=== PATIENT | male | born 1950 | race Caucasian/White ===

== ENCOUNTER 2020-01-13 14:02 | Inpatient (IN) | payer MEDICARE, MEDICAID ==
[~2020-01-13] VITALS: Ht 172.7 cm; Wt 108.0 kg
[2020-01-13] MEDS ORDERED: FAMOTIDINE 20MG/2ML VIAL IV STA (15:29)
[2020-01-13] MEDS ORDERED: SODIUM CHLORIDE 0.9% 1,000 ML IV ONE (15:29)
[2020-01-13] MEDS ORDERED: MORPHINE SULFATE 4 MG/ML CPJ (NOT FOR IM USE) IV STA (15:29)
[2020-01-13 15:39] LABS: CLARITY URINE CLEAR (CLEAR); COLOR URINE YELLOW (YELLOW); KETONES URINE 1+ (NEGATIVE); LEUKOCYTE ESTERASE URINE NEGATIVE (NEGATIVE); NITRITE URINE NEGATIVE (NEGATIVE); OCCULT BLOOD URINE 2+ (NEGATIVE); PH URINE 5.5 (4.5-8.0); PROTEIN URINE 2+ (NEGATIVE); SPECIFIC GRAVITY URINE 1.035 (1.005-1.030); UROBILINOGEN URINE 0.2 E.U./dL (0.2-1.0)
[2020-01-13 16:05] LABS: HEMATOCRIT. 44.2 % (42.0-52.0); HEMOGLOBIN. 14.8 g/dL (14.0-18.0); MEAN CORPUSCULAR HEMOGLOBIN 28.3 pg (28.0-32.0); MEAN CORPUSCULAR VOLUME 84.3 fL (80.0-94.0); MEAN PLATELET VOLUME 7.2 fl (7.4-10.4); PLATELET 464 x1000/uL (130-400); RED BLOOD CELL COUNT 5.24 mill/uL (4.7-6.1); RED CELL DISTRIBUTION WIDTH 18.1 % (11.6-14.6)
[2020-01-13 16:08] LABS: CHLORIDE 103 mEq/L (98-107)
[2020-01-13 16:11] LABS: PROTHROMBIN TIME 10.3 sec (9.6-11.0)
[2020-01-13 17:01] LABS: PLATELET ESTIMATE INCREASED
[2020-01-13] MEDS ORDERED: LEVOFLOXACIN 750MG PREMIX 150 ML IV ONE (17:15)
[2020-01-13] MEDS: MORPHINE SULFATE 2 MG/ML CPJ (NOT FOR IM USE) IV PRN (19:03)
[2020-01-13 21:00] VITALS: BP 186/96
[2020-01-13] MEDS ORDERED: SODIUM CHLORIDE 0.9% 1,000 ML IV NR (21:00)
[2020-01-13] MEDS ORDERED: PIPERACILLIN/TAZOBACTAM 3.375 G in DEXT 5% WATER 100 ML IV SCH (21:00)
[2020-01-13] MEDS ORDERED: DOCUSATE SODIUM 100MG CAPSULE PO PRN (21:00)
[2020-01-13] MEDS ORDERED: ONDANSETRON HCL 4MG/2ML INJ IV PRN (21:00)
[2020-01-13] MEDS ORDERED: GUAIFENESIN 200MG/10ML SUGAR FREE UDC PO PRN (21:00)
[2020-01-13] MEDS ORDERED: DEXTROSE 50% WATER 50ML SYRINGE IV PRN (23:00)
[2020-01-13] MEDS ORDERED: FOLIC ACID 1 MG, THIAMINE HCL 100 MG, MVI, ADULT NO.1 10 ML in DEXTROSE 5% WATER 1,000 ML IV ONE ×4 (23:30)
[2020-01-13] MEDS: SODIUM CHLORIDE 0.9% 1,000 ML IV SCH (23:44)
[2020-01-13] MEDS: LORAZEPAM 0.5MG TABLET PO PRN (23:44)
[2020-01-13] MEDS: CLONIDINE 0.1MG TABLET PO PRN (23:44)
[2020-01-13] MEDS: HYDROCODONE/ACETAMINOPHEN 5/325MG TABLET PO PRN (23:46)
[2020-01-14] VITALS: BP 155/83
[2020-01-14] MEDS: MULTIVITAMINS,THER W-MINERALS TABLET PO SCH ×2 (02:09→08:19)
[2020-01-14] MEDS: FOLIC ACID 1MG TABLET PO SCH ×2 (02:10→08:19)
[2020-01-14] MEDS: THIAMINE HCL 100MG TABLET PO SCH ×2 (02:10→08:20)
[2020-01-14 04:00] VITALS: BP 149/86
[2020-01-14] MEDS: LORAZEPAM 0.5MG TABLET PO PRN ×2 (06:53→15:18)
[2020-01-14] MEDS: BLOOD SUGAR DIAGNOSTIC STRIP TEST SCH ×4 (06:53→21:53)
[2020-01-14] MEDS: PIPERACILLIN/TAZOBACTAM 3.375 G in DEXT 5% WATER 100 ML IV SCH ×3 (06:53→16:13)
[2020-01-14] MEDS: CHLORDIAZEPOXIDE 25MG CAPSULE PO SCH ×3 (06:53→21:52)
[2020-01-14 07:34] LABS: BASOPHILS % 0.2 % (0.0-2.0); HEMOGLOBIN. 13.9 g/dL (14.0-18.0); LYMPHOCYTES % 10.2 % (20.0-50.0); MEAN CORPUSCULAR HEMOGLOBIN 28.9 pg (28.0-32.0); MEAN PLATELET VOLUME 7.2 fl (7.4-10.4); MONOCYTES % 12.4 % (2.0-8.0); NEUTROPHILS % 77.2 % (40.0-76.0); PLATELET 373 x1000/uL (130-400); RED BLOOD CELL COUNT 4.82 mill/uL (4.7-6.1); RED CELL DISTRIBUTION WIDTH 18.2 % (11.6-14.6)
[2020-01-14 07:35] LABS: CHLORIDE 98 mEq/L (98-107)
[2020-01-14 08:00] VITALS: BP 145/79
[2020-01-14] MEDS: SODIUM CHLORIDE 0.9% 1,000 ML IV SCH ×2 (08:19→16:14)
[2020-01-14] MEDS: INSULIN LISPRO 100 UNITS/ML SUBCUT SCH ×4 (08:35→21:53)
[2020-01-14] MEDS: HEPARIN 5000 UNITS/ML VIAL SUBCUT SCH ×2 (08:36→21:52)
[2020-01-14] MEDS ORDERED: ENOXAPARIN 40MG/0.4ML SYR SUBCUT SCH (09:00)
[2020-01-14] MEDS: HYDROCODONE/ACETAMINOPHEN 5/325MG TABLET PO PRN ×2 (12:10→21:20)
[2020-01-14 12:30] VITALS: BP 143/71
[2020-01-14] MEDS: PANTOPRAZOLE SODIUM 40 MG/VIAL IV SCH (13:15)
[2020-01-14] MEDS: ACETAMINOPHEN 325MG TABLET PO PRN (15:18)
[2020-01-14 16:00] VITALS: BP 149/66
[2020-01-14 20:00] VITALS: BP 120/88
[2020-01-15] VITALS: BP 162/90
[2020-01-15] MEDS: LORAZEPAM 0.5MG TABLET PO PRN ×3 (00:51→20:37)
[2020-01-15] MEDS: CLONIDINE 0.1MG TABLET PO PRN ×2 (00:52→20:39)
[2020-01-15] MEDS: PIPERACILLIN/TAZOBACTAM 3.375 G in DEXT 5% WATER 100 ML IV SCH ×5 (00:52→23:32)
[2020-01-15 04:00] VITALS: BP 115/77
[2020-01-15] MEDS: SODIUM CHLORIDE 0.9% 1,000 ML IV SCH ×2 (05:30→15:49)
[2020-01-15] MEDS: CHLORDIAZEPOXIDE 25MG CAPSULE PO SCH ×3 (05:31→20:38)
[2020-01-15] MEDS: BLOOD SUGAR DIAGNOSTIC STRIP TEST SCH ×4 (05:47→20:52)
[2020-01-15 08:00] VITALS: BP 125/77
[2020-01-15] MEDS: MULTIVITAMINS,THER W-MINERALS TABLET PO SCH (08:36)
[2020-01-15] MEDS: THIAMINE HCL 100MG TABLET PO SCH (08:36)
[2020-01-15] MEDS: PANTOPRAZOLE SODIUM 40 MG/VIAL IV SCH (08:36)
[2020-01-15] MEDS: FOLIC ACID 1MG TABLET PO SCH (08:36)
[2020-01-15] MEDS: HEPARIN 5000 UNITS/ML VIAL SUBCUT SCH ×2 (08:37→20:41)
[2020-01-15] MEDS: INSULIN LISPRO 100 UNITS/ML SUBCUT SCH ×4 (08:39→20:52)
[2020-01-15] MEDS: MORPHINE SULFATE 2 MG/ML CPJ (NOT FOR IM USE) IV PRN (10:25)
[2020-01-15 11:23] LABS: BASOPHILS % 1.1 % (0.0-2.0); EOSINOPHILS % 0.7 % (0.0-5.0); HEMATOCRIT. 45.8 % (42.0-52.0); HEMOGLOBIN. 15.2 g/dL (14.0-18.0); LYMPHOCYTES % 21.1 % (20.0-50.0); MEAN CORPUSCULAR HEMOGLOBIN 28.4 pg (28.0-32.0); MEAN PLATELET VOLUME 7.3 fl (7.4-10.4); NEUTROPHILS % 63.1 % (40.0-76.0); PLATELET 396 x1000/uL (130-400); RED BLOOD CELL COUNT 5.33 mill/uL (4.7-6.1); RED CELL DISTRIBUTION WIDTH 17.9 % (11.6-14.6)
[2020-01-15 11:30] LABS: CHLORIDE 102 mEq/L (98-107)
[2020-01-15 12:00] VITALS: BP 130/79
[2020-01-15 16:00] VITALS: BP 147/83
[2020-01-15 20:00] VITALS: BP 167/91
[2020-01-15] MEDS: HYDROCODONE/ACETAMINOPHEN 5/325MG TABLET PO PRN (20:38)
[2020-01-15] MEDS: ACETAMINOPHEN 325MG TABLET PO PRN (20:39)
[2020-01-15] MEDS: ENOXAPARIN 120MG/0.8ML SYR SUBCUT SCH (23:31)
[2020-01-16] VITALS: BP 162/85
[2020-01-16] MEDS: SODIUM CHLORIDE 0.9% 1,000 ML IV SCH ×3 (01:13→20:40)
[2020-01-16 04:00] VITALS: BP 140/83
[2020-01-16] MEDS: CHLORDIAZEPOXIDE 25MG CAPSULE PO SCH ×3 (05:50→20:42)
[2020-01-16] MEDS: PIPERACILLIN/TAZOBACTAM 3.375 G in DEXT 5% WATER 100 ML IV SCH ×3 (05:50→18:02)
[2020-01-16] MEDS: BLOOD SUGAR DIAGNOSTIC STRIP TEST SCH ×4 (07:40→21:00)
[2020-01-16 08:00] VITALS: BP 138/79
[2020-01-16] MEDS: PANTOPRAZOLE SODIUM 40 MG/VIAL IV SCH (09:06)
[2020-01-16] MEDS: MULTIVITAMINS,THER W-MINERALS TABLET PO SCH (09:06)
[2020-01-16] MEDS: FOLIC ACID 1MG TABLET PO SCH (09:07)
[2020-01-16] MEDS: THIAMINE HCL 100MG TABLET PO SCH (09:07)
[2020-01-16] MEDS: INSULIN LISPRO 100 UNITS/ML SUBCUT SCH ×4 (09:08→21:00)
[2020-01-16 10:24] LABS: CHLORIDE 102 mEq/L (98-107)
[2020-01-16 10:30] LABS: BASOPHILS % 1.1 % (0.0-2.0); EOSINOPHILS % 3.2 % (0.0-5.0); HEMATOCRIT. 42.1 % (42.0-52.0); HEMOGLOBIN. 14.2 g/dL (14.0-18.0); LYMPHOCYTES % 21.6 % (20.0-50.0); MEAN CORPUSCULAR HEMOGLOBIN 28.9 pg (28.0-32.0); MEAN CORPUSCULAR VOLUME 85.7 fL (80.0-94.0); MEAN PLATELET VOLUME 7.7 fl (7.4-10.4); MONOCYTES % 10.2 % (2.0-8.0); NEUTROPHILS % 63.9 % (40.0-76.0); PLATELET 361 x1000/uL (130-400); RED BLOOD CELL COUNT 4.91 mill/uL (4.7-6.1); RED CELL DISTRIBUTION WIDTH 18.4 % (11.6-14.6)
[2020-01-16] MEDS: ENOXAPARIN 120MG/0.8ML SYR SUBCUT SCH ×2 (11:00→20:41)
[2020-01-16 12:00] VITALS: BP 136/61
[2020-01-16 13:38] LABS: HEPATITIS B SURFACE ANTIGEN NEGATIVE
[2020-01-16 14:07] LABS: HEPATITIS A AB IGM NEGATIVE (NEGATIVE)
[2020-01-16 16:00] VITALS: BP 146/55
[2020-01-16] MEDS: LORAZEPAM 0.5MG TABLET PO PRN ×2 (16:40→20:41)
[2020-01-16 20:00] VITALS: BP 160/80
[2020-01-16] MEDS: HYDROCODONE/ACETAMINOPHEN 5/325MG TABLET PO PRN (20:42)
[2020-01-17] VITALS: BP 137/84
[2020-01-17] MEDS: PIPERACILLIN/TAZOBACTAM 3.375 G in DEXT 5% WATER 100 ML IV SCH ×5 (00:52→21:46)
[2020-01-17 04:00] VITALS: BP 138/83
[2020-01-17] MEDS: CHLORDIAZEPOXIDE 25MG CAPSULE PO SCH ×3 (06:27→21:44)
[2020-01-17] MEDS: SODIUM CHLORIDE 0.9% 1,000 ML IV SCH ×2 (06:28→17:00)
[2020-01-17] MEDS: BLOOD SUGAR DIAGNOSTIC STRIP TEST SCH ×4 (06:34→21:46)
[2020-01-17 06:42] LABS: BASOPHILS % 0.9 % (0.0-2.0); EOSINOPHILS % 3.6 % (0.0-5.0); HEMATOCRIT. 44.9 % (42.0-52.0); HEMOGLOBIN. 14.9 g/dL (14.0-18.0); MEAN CORPUSCULAR VOLUME 87.4 fL (80.0-94.0); MEAN PLATELET VOLUME 7.9 fl (7.4-10.4); MONOCYTES % 9.2 % (2.0-8.0); NEUTROPHILS % 67.3 % (40.0-76.0); PLATELET 336 x1000/uL (130-400); RED BLOOD CELL COUNT 5.14 mill/uL (4.7-6.1); RED CELL DISTRIBUTION WIDTH 18.5 % (11.6-14.6)
[2020-01-17 07:59] LABS: CHLORIDE 105 mEq/L (98-107)
[2020-01-17 08:00] VITALS: BP 148/78
[2020-01-17] MEDS ORDERED: IOHEXOL-350 100 ML BOTTLE ONE (08:11)
[2020-01-17] MEDS: PANTOPRAZOLE SODIUM 40 MG/VIAL IV SCH (08:48)
[2020-01-17] MEDS: FOLIC ACID 1MG TABLET PO SCH (08:48)
[2020-01-17] MEDS: MULTIVITAMINS,THER W-MINERALS TABLET PO SCH (08:48)
[2020-01-17] MEDS: INSULIN LISPRO 100 UNITS/ML SUBCUT SCH ×4 (08:50→21:47)
[2020-01-17] MEDS: THIAMINE HCL 100MG TABLET PO SCH (10:38)
[2020-01-17] MEDS: ENOXAPARIN 120MG/0.8ML SYR SUBCUT SCH ×2 (10:39→21:46)
[2020-01-17] MEDS: MORPHINE SULFATE 2 MG/ML CPJ (NOT FOR IM USE) IV PRN (11:07)
[2020-01-17 12:00] VITALS: BP 138/79
[2020-01-17 16:00] VITALS: BP 148/79
[2020-01-17] MEDS: LORAZEPAM 0.5MG TABLET PO PRN ×2 (16:07→21:44)
[2020-01-17 20:00] VITALS: BP 131/81
[2020-01-17] MEDS: HYDROCODONE/ACETAMINOPHEN 5/325MG TABLET PO PRN (21:45)
[2020-01-18] VITALS: BP 126/73
[2020-01-18] MEDS: SODIUM CHLORIDE 0.9% 1,000 ML IV SCH (03:00)
[2020-01-18 04:00] VITALS: BP 151/83
[2020-01-18 05:47] LABS: BASOPHILS % 0.6 % (0.0-2.0); EOSINOPHILS % 3.8 % (0.0-5.0); HEMATOCRIT. 40.5 % (42.0-52.0); HEMOGLOBIN. 13.5 g/dL (14.0-18.0); MEAN CORPUSCULAR HEMOGLOBIN 28.5 pg (28.0-32.0); MEAN CORPUSCULAR VOLUME 85.7 fL (80.0-94.0); MEAN PLATELET VOLUME 7.5 fl (7.4-10.4); MONOCYTES % 9.7 % (2.0-8.0); NEUTROPHILS % 69.9 % (40.0-76.0); PLATELET 365 x1000/uL (130-400); RED BLOOD CELL COUNT 4.72 mill/uL (4.7-6.1); RED CELL DISTRIBUTION WIDTH 18.3 % (11.6-14.6)
[2020-01-18] MEDS: PIPERACILLIN/TAZOBACTAM 3.375 G in DEXT 5% WATER 100 ML IV SCH ×3 (06:14→17:42)
[2020-01-18] MEDS: CHLORDIAZEPOXIDE 25MG CAPSULE PO SCH ×3 (06:14→22:37)
[2020-01-18 07:20] LABS: CHLORIDE 103 mEq/L (98-107)
[2020-01-18] MEDS: BLOOD SUGAR DIAGNOSTIC STRIP TEST SCH ×4 (07:40→20:21)
[2020-01-18 08:14] VITALS: BP 133/66
[2020-01-18] MEDS: PANTOPRAZOLE SODIUM 40 MG/VIAL IV SCH (08:44)
[2020-01-18] MEDS: THIAMINE HCL 100MG TABLET PO SCH (08:44)
[2020-01-18] MEDS: MULTIVITAMINS,THER W-MINERALS TABLET PO SCH (08:44)
[2020-01-18] MEDS: FOLIC ACID 1MG TABLET PO SCH (08:44)
[2020-01-18] MEDS: INSULIN LISPRO 100 UNITS/ML SUBCUT SCH ×4 (08:45→20:46)
[2020-01-18] MEDS: ENOXAPARIN 120MG/0.8ML SYR SUBCUT SCH ×2 (10:06→22:38)
[2020-01-18 12:00] VITALS: BP 111/72
[2020-01-18 16:00] VITALS: BP_SYST 125; BP_DIAS 70; BP_DIAS 78
[2020-01-18 20:00] VITALS: BP 146/84
[2020-01-18] MEDS: ACETAMINOPHEN 325MG TABLET PO PRN (22:40)
[2020-01-19] VITALS: BP 159/84
[2020-01-19] MEDS: PIPERACILLIN/TAZOBACTAM 3.375 G in DEXT 5% WATER 100 ML IV SCH ×4 (00:36→17:29)
[2020-01-19 04:00] VITALS: BP 145/89
[2020-01-19] MEDS: CHLORDIAZEPOXIDE 25MG CAPSULE PO SCH (05:50)
[2020-01-19 06:12] LABS: CHLORIDE 103 mEq/L (98-107)
[2020-01-19 06:20] LABS: HEMATOCRIT. 41.7 % (42.0-52.0); MEAN CORPUSCULAR HEMOGLOBIN 28.9 pg (28.0-32.0); MEAN CORPUSCULAR VOLUME 86.3 fL (80.0-94.0); MEAN PLATELET VOLUME 7.7 fl (7.4-10.4); PLATELET 327 x1000/uL (130-400); RED BLOOD CELL COUNT 4.84 mill/uL (4.7-6.1); RED CELL DISTRIBUTION WIDTH 18.6 % (11.6-14.6)
[2020-01-19] MEDS: BLOOD SUGAR DIAGNOSTIC STRIP TEST SCH ×4 (06:46→21:20)
[2020-01-19 08:00] VITALS: BP 114/75
[2020-01-19] MEDS: PANTOPRAZOLE SODIUM 40 MG/VIAL IV SCH (08:43)
[2020-01-19] MEDS: MULTIVITAMINS,THER W-MINERALS TABLET PO SCH ×2 (08:43→11:45)
[2020-01-19] MEDS: HYDROCODONE/ACETAMINOPHEN 5/325MG TABLET PO PRN ×2 (08:44→21:23)
[2020-01-19] MEDS: INSULIN LISPRO 100 UNITS/ML SUBCUT SCH ×4 (08:46→21:29)
[2020-01-19] MEDS: ENOXAPARIN 120MG/0.8ML SYR SUBCUT SCH (11:29)
[2020-01-19] MEDS: FOLIC ACID 1MG TABLET PO SCH (11:45)
[2020-01-19] MEDS: THIAMINE HCL 100MG TABLET PO SCH (11:45)
[2020-01-19 12:00] VITALS: BP 90/50
[2020-01-19 16:00] VITALS: BP 127/63
[2020-01-19 16:52] LABS: PLATELET ESTIMATE NORMAL
[2020-01-19 20:00] VITALS: BP 129/97
[2020-01-20] VITALS: BP 142/50
[2020-01-20] MEDS: ENOXAPARIN 120MG/0.8ML SYR SUBCUT SCH ×3 (00:07→23:00)
[2020-01-20 04:00] VITALS: BP 108/50
[2020-01-20 06:54] LABS: BASOPHILS % 0.9 % (0.0-2.0); EOSINOPHILS % 4.4 % (0.0-5.0); HEMATOCRIT. 42.9 % (42.0-52.0); HEMOGLOBIN. 14.4 g/dL (14.0-18.0); LYMPHOCYTES % 18.8 % (20.0-50.0); MEAN CORPUSCULAR HEMOGLOBIN 29.2 pg (28.0-32.0); MEAN CORPUSCULAR VOLUME 87.1 fL (80.0-94.0); MEAN PLATELET VOLUME 7.4 fl (7.4-10.4); MONOCYTES % 11.1 % (2.0-8.0); NEUTROPHILS % 64.8 % (40.0-76.0); PLATELET 321 x1000/uL (130-400); RED BLOOD CELL COUNT 4.93 mill/uL (4.7-6.1); RED CELL DISTRIBUTION WIDTH 18.7 % (11.6-14.6)
[2020-01-20] MEDS: BLOOD SUGAR DIAGNOSTIC STRIP TEST SCH ×4 (07:13→21:03)
[2020-01-20] MEDS: INSULIN LISPRO 100 UNITS/ML SUBCUT SCH ×4 (07:13→21:15)
[2020-01-20 07:24] LABS: CHLORIDE 104 mEq/L (98-107)
[2020-01-20 08:00] VITALS: BP 132/84
[2020-01-20] MEDS: THIAMINE HCL 100MG TABLET PO SCH (08:16)
[2020-01-20] MEDS: FOLIC ACID 1MG TABLET PO SCH (08:16)
[2020-01-20] MEDS: PANTOPRAZOLE SODIUM 40 MG/VIAL IV SCH (08:16)
[2020-01-20 12:00] VITALS: BP 140/78
[2020-01-20 16:00] VITALS: BP 130/80
[2020-01-20 20:00] VITALS: BP 123/81
[2020-01-20] MEDS: HYDROCODONE/ACETAMINOPHEN 5/325MG TABLET PO PRN (21:18)
[2020-01-21] VITALS: BP_SYST 117; BP_SYST 127; BP_DIAS 69; BP_DIAS 82
[2020-01-21 04:00] VITALS: BP 138/45
[2020-01-21] MEDS: BLOOD SUGAR DIAGNOSTIC STRIP TEST SCH ×4 (07:52→21:00)
[2020-01-21] MEDS: INSULIN LISPRO 100 UNITS/ML SUBCUT SCH ×4 (07:52→22:14)
[2020-01-21 08:00] VITALS: BP 131/63
[2020-01-21] MEDS: ENOXAPARIN 120MG/0.8ML SYR SUBCUT SCH ×2 (09:51→22:04)
[2020-01-21] MEDS: FOLIC ACID 1MG TABLET PO SCH (09:52)
[2020-01-21] MEDS: PANTOPRAZOLE SODIUM 40 MG/VIAL IV SCH (09:52)
[2020-01-21] MEDS: THIAMINE HCL 100MG TABLET PO SCH (09:52)
[2020-01-21] MEDS: MULTIVITAMINS,THER W-MINERALS TABLET PO SCH (09:52)
[2020-01-21] MEDS: HYDROCODONE/ACETAMINOPHEN 5/325MG TABLET PO PRN (10:02)
[2020-01-21] MEDS ORDERED: INSU100I28 SQ (10:59)
[2020-01-21 12:00] VITALS: BP 120/62
[2020-01-21 16:00] VITALS: BP 128/70
[2020-01-21 20:00] VITALS: BP 113/74
[2020-01-22] VITALS: BP 143/86
[2020-01-22 04:00] VITALS: BP 117/66
[2020-01-22] MEDS: BLOOD SUGAR DIAGNOSTIC STRIP TEST SCH ×2 (07:35→11:59)
[2020-01-22] MEDS: INSULIN LISPRO 100 UNITS/ML SUBCUT SCH ×2 (07:35→12:23)
[2020-01-22 08:00] VITALS: BP 129/83
[2020-01-22] MEDS: THIAMINE HCL 100MG TABLET PO SCH (08:58)
[2020-01-22] MEDS: MULTIVITAMINS,THER W-MINERALS TABLET PO SCH (08:58)
[2020-01-22] MEDS: FOLIC ACID 1MG TABLET PO SCH (08:58)
[2020-01-22] MEDS: PANTOPRAZOLE SODIUM 40 MG/VIAL IV SCH (08:58)
[2020-01-22] MEDS: ENOXAPARIN 120MG/0.8ML SYR SUBCUT SCH (08:58)
[2020-01-22] MEDS: HYDROCODONE/ACETAMINOPHEN 5/325MG TABLET PO PRN (11:13)
[2020-01-22 12:00] VITALS: BP 127/70
[2020-01-22 15:10] VITALS: BP 127/70
== END 2020-01-22 17:41 | disposition home or self-care (01) | DRG 871 ==
LOC: ER 14:13 → 7WST 17:15 → ENRESERV 19:28
PROVIDERS: ADMIT Internal Medicine; ATTEND Internal Medicine
PROC: 05HY33Z Insertion of Infusion Device into Upper Vein, Percutaneous Approach (ICD-10-PCS; principal; 2020-01-16)
PROC: B54MZZA Ultrasonography of Right Upper Extremity Veins, Guidance (ICD-10-PCS; 2020-01-16)
DX: A41.89 Other specified sepsis (principal); U07.1 COVID-19; J96.00 Acute respiratory failure, unspecified whether with hypoxia or hypercapnia; J12.89 Other viral pneumonia; B37.49 Other urogenital candidiasis; E11.65 Type 2 diabetes mellitus with hyperglycemia; E66.01 Morbid (severe) obesity due to excess calories; K29.20 Alcoholic gastritis without bleeding; R07.89 Other chest pain; F10.10 Alcohol abuse, uncomplicated; R16.0 Hepatomegaly, not elsewhere classified; I11.9 Hypertensive heart disease without heart failure; Z79.4 Long term (current) use of insulin; Z79.899 Other long term (current) drug therapy
CPT/HCPCS: 36415; 71045; 71275; 76700; 76937; 80048; 80053; 80076; 81003; 82962; 83036; 83605; 84145; 84484; 85025; 85379; 86705; 86709; 86803; 87340; 93005; 99285; C1725; C9113; J1644; J1650; J1815; J1956; J2270; J2543; J3411; J3490; J7030; J7060; J7070; Q9967; U0003-CS